=== PATIENT | male | born 1990 | race Caucasian/White ===

== ENCOUNTER → 2024-02-15 15:25 | Outpatient (REF) | payer OTHER, SELFPAY | LOC: RAD 15:25 | PROVIDERS: ATTENDING PHYSICIAN Physical Medicine & Rehabilitation Sports Medicine; FAMILY PHYSICIAN Family Medicine | DX: M25.561 Pain in right knee (principal); S00.259A Superficial foreign body of unspecified eyelid and periocular area, initial encounter | CPT/HCPCS: 70030 ==

== ENCOUNTER → 2024-04-09 13:45 | Outpatient (REF) | payer OTHER, SELFPAY | LOC: MRI 3T 13:45 | PROVIDERS: ATTENDING PHYSICIAN Physical Medicine & Rehabilitation Sports Medicine; FAMILY PHYSICIAN Family Medicine | DX: M25.511 Pain in right shoulder (principal); S43.431A Superior glenoid labrum lesion of right shoulder, initial encounter; M75.81 Other shoulder lesions, right shoulder | CPT/HCPCS: 23350; 73040; 73222 ==

== ENCOUNTER 2025-02-03 17:43 | Emergency (ER) | payer OTHER, SELFPAY ==
[2025-02-03 17:44] VITALS: BP 144/90
--- NOTE | 2025-02-03 18:04 | ED.GENMED ---
History of Present Illness
General
Chief Complaint: Headache
Time Seen by Provider: 02/03/25 18:04
History of Present Illness
History of Present Illness:
TIME OF INITIAL EVALUATION
- 6:05 PM
REVIEW OF OLD RECORDS
- The patient has history of migraine, the patient was here related to pain in the right shoulder in 2023
Note:
CHIEF COMPLAINT(S)
Headache with light sensitivity and pressure sensation.
HISTORY OF PRESENT ILLNESS
The patient is a 34-year-old male who presented with a headache that began on Monday. The patient describes the onset as gradual, and the headache became significantly worse by Monday night into Monday, resulting in poor sleep due to its
severity. The patient reports no prior history of migraine headaches. The headache is characterized by light sensitivity, described by the patient as bothersome, with relief when the lights are out. There is a sensation of pressure but no associated
nausea or vomiting, although the patient experienced slight nausea after drinking water in the waiting room, likely due to limited movement throughout the day. The patient denies any episodes of fever. Neurologically, the patient has no weakness in
the limbs or difficulty communicating and demonstrates normal coordination by performing [id number] tasks.
SOCIAL DETERMINANTS AFFECTING HEALTH
The patient reported potential nausea due to limited physical activity throughout the day, suggesting the possible influence of lifestyle factors like sedentarism.
PHYSICAL EXAM
- Neurological: No meningeal signs observed. Coordination intact. The patient could effectively perform qvhaqa-xo-ylmo tasks bilaterally. No apparent difficulty in communication.
- Musculoskeletal: Normal strength and range of motion in limbs as demonstrated by voluntary movements.
- General: Well appearing in no distress
- HEENT: Moist oral mucosa
- Cardiovascular: No murmurs, normal heart rate, regular rhythm, No chest wall tenderness
- Pulmonary: No respiratory distress, breath sounds are clear and equal
- Abdomen: Soft with no peritoneal signs, no tenderness
- Psychiatric: Appropriate mental status, normal insight and judgement
- Extremities: Nontender, no edema, moves all extremities equally
- Skin: No rash, no lesions
PROBLEM LIST
Acute Problems:
- Headache with light sensitivity and pressure sensation.
PLAN
- Administer medications for headache relief, including Toradol, metoclopramide, and diphenhydramine.
DIFFERENTIAL DIAGNOSIS
The Differential Diagnosis includes, in no particular order and is not limited to:
- Migraine headache
- Tension-type headache
- Cluster headache
- Sinusitis
- Viral meningitis
- Intracranial hemorrhage
- Subarachnoid hemorrhage
- Brain tumor
- Temporal arteritis
- Medication overuse headache
RADIOLOGY
- Not indicated. Considered CT of the brain however the patient's headache is described as gradual onset and progression and he has a normal neurologic examination with no neurologic deficits.
EKG
- Not indicated
LABS
- White count hemoglobin normal, mild lymphocytopenia noted, chemistries unremarkable
UPDATE
-02/03/25 - 19:01
Patient reports feeling slightly better with current medication regimen, although the medications are not specifically for migraine treatment. Blood work indicates normal white blood cell count, but lymphocyte percentage is slightly lower, possibly
related to a viral infection rather than bacterial meningitis. No immediate need for lumbar puncture or CT scan as neurological exam is normal, and symptoms might resolve on their own. Patient administered Toradol, Reglan, and Benadryl for symptoms,
advised against driving due to sedative effects of the medications. Discharge planned as no significant issues identified, with recommendation for patient to consider using [id number] anti-inflammatory medication like Ibuprofen if needed.
Phy Exam
Physical Exam
Physical Exam:
See HPI
Course
Orders/Labs/Results
Orders:
Orders
02/03/25 18:17
0.9% Sodium Chloride 1000 ml [Nss] 1,000 ml IV BOLUS
Diphenhydramine [Benadryl] 25 mg IV NOW STA
Ketorolac [Toradol] 15 mg IV NOW STA
Metoclopramide [Reglan] 10 mg IV NOW STA
02/03/25 18:19
Basic Metabolic Panel Urgent
Complete Blood Count/With Diff Urgent
Abnormal Lab Results
02/03/25
18:19
RBC 4.40 L 10^6/uL
(4.70-6.10)
MPV 10.5 H fL
(7.4-10.4)
Absolute Lymphs (auto) 1.0 L 10^3/uL
(1.2-3.4)
Absolute Monos (auto) 1.0 H 10^3/uL
(0.1-0.6)
Lymphocytes % 17.8 L %
(20.5-51.1)
Monocytes % 17.7 H %
(1.7-9.3)
02/03/25 18:19
02/03/25 18:19
Vital Signs
Initial and Last Documented VS:
Initial Vital Signs
Temp Pulse Resp BP Pulse Ox
36.8 C 68 20 144/90 99
02/03/25 17:44 02/03/25 17:44 02/03/25 17:44 02/03/25 17:44 02/03/25 17:44
Last Documented Vital Signs
Temp Pulse Resp BP Pulse Ox
36.8 C 68 20 144/90 99
02/03/25 17:44 02/03/25 17:44 02/03/25 17:44 02/03/25 17:44 02/03/25 17:44
*Pulse Oximetry
Patient hypoxic: no (99% room air-normal)
*Critical Care Note
Total Time (30-74mins, 75-104mins- exclusive of procedures): Not Applicable
ED Attending Note
-
Portions of this chart may have been created with voice recognition software.� Occasional wrong word or��sound alike� substitutions may have occurred due to the inherent limitations of voice recognition software.
Discharge Plan
Departure
Referrals:
UNKNOWN - PT DOES,NOT KNOW [Family Provider]
Interventions
Interventions:
*Risk Screen - Suicide Last Done: 02/03/25 18:06
*General Assessment Last Done: 02/03/25 17:44
*Neglect/Abuse Screening Last Done: 02/03/25 18:06
*ED- Fall Risk Assessment Last Done: 02/03/25 18:06
*ED COVID-19 Vaccine History Last Done: 02/03/25 18:06
ED- Neurological Assessment Last Done: 02/03/25 18:05
Discharge Date and Time
Print Language: [id number]
[2025-02-03] MEDS: NSS 1000 IV (18:22)
[2025-02-03] MEDS: TORADOL 15 MG IV (18:22)
[2025-02-03] MEDS: BENADRYL 25 MG IV (18:23)
[2025-02-03] MEDS: REGLAN 10 MG IV (18:23)
[2025-02-03 18:26] LABS: % Basophils 0.6 % (0-2); % Eosinophils 0.2 % (0-6); % Immature Granulocytes 0.2 % (0-0.5); % Lymphocytes 17.8 % (20.5-51.1); % Monocytes 17.7 % (1.7-9.3); % Neutrophils 63.5 % (42.2-75.2); Absolute Neutrophils 3.4 10^3/uL (1.4-6.5); Hematocrit 39.7 % (39.0-52.0); Hemoglobin 13.6 g/dL (13.0-18.0); Mean Corp Hgb Conc. 34.3 g/dL (33.0-37.0); Mean Corpuscular Hgb 30.9 pg (27.0-31.0); Mean Corpuscular Volume 90.2 fL (80.0-94.0); Mean Platelet Volume 10.5 fL (7.4-10.4); Nucleated Red Blood Cells % 0 % (-); Platelet Count 203 10^3/uL (130-400); Red Cell Dist. Width 11.9 % (11.5-14.5); White Blood Cell Count 5.4 10^3/uL (4.8-10.8)
[2025-02-03 18:56] LABS: Blood Urea Nitrogen 10 mg/dl (9-20); Calcium 9.3 mg/dl (8.4-10.2); Carbon Dioxide 24 mmol/L (22-30); Chloride 106 mmol/L (98-107); Glucose 84 mg/dl (70-99); Sodium 140 mmol/L (135-145); eGFR > 60.00
== END 2025-02-03 19:31 | disposition home or self-care (01) ==
LOC: EMR 17:43
PROVIDERS: EMERGENCY PHYSICIAN Emergency Medicine
DX: R51.9 Headache, unspecified (principal)
CPT/HCPCS: 99284; 96374; 96375 ×2; 96361; 80048; 85025